=== PATIENT | male | born 1960 | race Caucasian/White ===

== ENCOUNTER → 2018-03-03 | Outpatient (CLI) | payer MEDICAID | END | disposition home or self-care (01) | LOC: CFH 13:22 | PROVIDERS: ATTEND Physician Assistant | DX: I65.23 Occlusion and stenosis of bilateral carotid arteries (principal) | CPT/HCPCS: 93880 ==

== ENCOUNTER → 2018-07-04 | Outpatient (CLI) | payer MEDICAID | END | disposition home or self-care (01) | LOC: CFH 13:47 | PROVIDERS: ATTEND Physician Assistant | DX: M75.122 Complete rotator cuff tear or rupture of left shoulder, not specified as traumatic (principal); M62.512 Muscle wasting and atrophy, not elsewhere classified, left shoulder; S49.92XD Unspecified injury of left shoulder and upper arm, subsequent encounter; X58.XXXD Exposure to other specified factors, subsequent encounter ==

== ENCOUNTER 2019-04-23 09:13 | Emergency (ER) | payer MEDICAID ==
[~2019-04-23] VITALS: Ht 180.3 cm; Wt 77.3 kg
--- NOTE | 2019-04-23 11:00 | NUR ---
PT AMBULATORY TO ROOM WITH STEADY GAIT. ASSUMING PT CARE AT THIS TIME. PT C/O LUQ ABD PAIN AND LEFT SIDED RIB PAIN X 1 WEEK. WORSENING THIS AM AFTER SNEEZING. DENIES ANY FALLS OR TRAUMA. PT RESTING ON GURNEY. AWAITING MD FOR FURTHER ORDER. ANTOINE.
[2019-04-23] MEDS ORDERED: METHOCARBAMOL 500 MG TABLET ONE (11:19)
[2019-04-23] MEDS ORDERED: ACETAMINOPHEN 500 MG TABLET ONE (11:19)
[2019-04-23] MEDS ORDERED: METHOCARBAMOL 500 MG TABLET PO ONE (11:30)
[2019-04-23] MEDS ORDERED: ACETAMINOPHEN 500 MG TABLET PO ONE (11:30)
[2019-04-23 12:32] VITALS: BP 142/90
--- NOTE | 2019-04-23 12:33 | NUR ---
Patient/Caregiver given discharge instructions and they have confirmed that they understand the instructions. Patient ambulatory with steady gait. Pt left with all personal belongings.
== END 2019-04-23 12:35 | disposition home or self-care (01) ==
LOC: ED 12:29
DX: R07.89 Other chest pain (principal)
CPT/HCPCS: 71046; 99283